=== PATIENT | female | born 1985 | race Caucasian/White ===

== ENCOUNTER 2017-08-13 15:16 | Inpatient (IN) | payer OTHER ==
[~2017-08-13] VITALS: Ht 165.1 cm; Wt 75.1 kg
[~2017-08-13 15:16] MED LIST: CLARITIN10 MG PO; ENDOCET 5-3251 EACH PO; FEOSOL325 MG PO; FLONASE16 G1 BOTH NARES; HYDROCODON-ACE1 EAC7 PO; MICRONOR0.35 MG PO; MOTRIN800 MG PO; OMEPRAZOLE40 M1 PO; PREFERA-OB P1 TABLET PO; PROAIR HFA8.5 GM IH; ZOFRAN4 MG PO; bcp
[2017-08-13 16:03] LABS: HEMATOCRIT 39.6 % (36.0-46.0); HEMOGLOBIN 13.4 G/DL (11.9-15.5); MCH 28.2 PG (29.0-34.0); MCHC 33.8 G/DL (30.0-36.0); MCV 83.4 FL (83-99); PLATELET COUNT 126 K/uL (156-360); RBC DIS.WIDTH-CV 12.3 % (11.8-14.6); RED BLOOD COUNT 4.75 M/uL (3.80-5.20); WHITE BLOOD COUNT 9.5 K/uL (4.1-10.2)
[2017-08-13 16:11] LABS: ALBUMIN 4.1 g/dL (3.2-4.8); CHLORIDE 105 mEq/L (99-109); SODIUM 138 mEq/L (136-147)
[2017-08-13 16:13] LABS: GLUCOSE 110 mg/dL (70-99)
[2017-08-13 16:14] LABS: TOTAL PROTEIN 6.8 g/dL (6.4-8.3)
[2017-08-13 16:15] LABS: TOTAL BILIRUBIN 0.6 mg/dL (0.0-1.0)
[2017-08-13 16:17] LABS: ALKALINE PHOSPHATASE 86 IU/L (3-129); CREATININE 0.7 mg/dL (0.6-1.3); GFR ESTIMATE (CALCULATED) > 59 mL/min/
[2017-08-13 16:18] LABS: UREA NITROGEN (BUN) 15 mg/dL (9-23)
[2017-08-13 16:19] LABS: AST (GOT) 66 IU/L (2-34)
[2017-08-13 16:20] LABS: ALT (GPT) 39 IU/L (3-49); LIPASE 209 U/L (1.0-51.0)
[2017-08-13 16:26] LABS: QUANTITATIVE HCG < 4.0 MIU/ML
[2017-08-13 16:27] LABS: APPEARANCE CLEAR ((CLEAR)); BILIRUBIN NEGATIVE; BLOOD NEGATIVE; COLOR YELLOW ((YELLOW)); GLUCOSE (STRIP) NEGATIVE; KETONES NEGATIVE; LEUKOCYTES NEGATIVE; NITRITE NEGATIVE; PROTEIN (STRIP) 30; SPECIFIC GRAVITY 1.027 (1.000-1.030); UCUL ADDED? NO
[2017-08-13] MEDS ORDERED: PROTONIX40 MG PO (19:09)
[2017-08-13] MEDS ORDERED: DAILY VALUE1 EACH PO (19:09)
[2017-08-13] MEDS ORDERED: VITAMIN B-12500 MC5 SL (19:11)
[2017-08-13] MEDS ORDERED: ORTHO TRI-CY1 TABLE1 PO (19:11)
[2017-08-13] MEDS ORDERED: FEOSOL325 MG PO (19:12)
[2017-08-13 21:21] VITALS: BP 110/74
[2017-08-13 23:32] VITALS: BP 115/70
[2017-08-14 03:29] VITALS: BP 114/60
[2017-08-14 06:25] LABS: BASOPHIL (%) 0.9 % (0-1); BASOPHIL COUNT 0.1 K/uL (0-0.1); EOSINOPHIL (%) 1.9 % (0-5); EOSINOPHIL COUNT 0.1 K/uL (0-0.3); HEMATOCRIT 38.9 % (36.0-46.0); HEMOGLOBIN 12.9 G/DL (11.9-15.5); IMMATURE GRANULOCYTE (%) 0.2 % (0.0-0.7); LYMPHOCYTE (%) 38.4 % (15-42); MCH 28.2 PG (29.0-34.0); MCHC 33.2 G/DL (30.0-36.0); MCV 84.9 FL (83-99); MONOCYTE (%) 9.4 % (3-12); MONOCYTE COUNT 0.5 K/uL (0-0.8); NEUTROPHIL (%) 49.2 % (45-76); NEUTROPHIL COUNT 2.6 K/uL (1.8-6.4); PLATELET COUNT 114 K/uL (156-360); RBC DIS.WIDTH-CV 12.5 % (11.8-14.6); RBC DIS.WIDTH-SD 38.2 % (39-53); RED BLOOD COUNT 4.58 M/uL (3.80-5.20); WHITE BLOOD COUNT 5.3 K/uL (4.1-10.2)
[2017-08-14 06:50] LABS: ALBUMIN 3.6 G/DL (3.2-4.8); ALKALINE PHOSPHATASE 79 IU/L (3-129); ALT (GPT) 83 IU/L (3-49); AMYLASE 33 IU/L (1-118); AST (GOT) 58 IU/L (2-34); CHLORIDE 109 MEQ/L (99-109); CREATININE 0.5 MG/DL (0.6-1.3); GFR ESTIMATE (CALCULATED) > 59 mL/min/; LIPASE 27 U/L (1.0-51.0); POTASSIUM 3.7 MEQ/L (3.7-5.4); SODIUM 141 MEQ/L (136-147); TOTAL BILIRUBIN 0.7 MG/DL (0.0-1.0); TOTAL PROTEIN 5.9 G/DL (6.4-8.3); TRIGLYCERIDES 148 MG/DL (Normal: <150); UREA NITROGEN (BUN) 11 mg/dL (9-23)
[2017-08-14 06:51] LABS: GLUCOSE 82 mg/dL (70-99)
[2017-08-14 07:05] LABS: C-REACTIVE PROTEIN 5.3 MG/L (0-10)
[2017-08-14 07:08] VITALS: BP 103/69
[2017-08-14 11:23] VITALS: BP 115/66
[2017-08-14 15:42] VITALS: BP 103/64
[2017-08-14 19:35] VITALS: BP 120/69
[2017-08-15 00:11] VITALS: BP 114/67
[2017-08-15 03:38] VITALS: BP 99/60
[2017-08-15 06:45] VITALS: BP 111/70
[2017-08-15 07:18] LABS: EOSINOPHIL COUNT 0.1 K/uL (0-0.3); HEMATOCRIT 35.6 % (36.0-46.0); IMMATURE GRANULOCYTE (%) 0.3 % (0.0-0.7); LYMPHOCYTE (%) 28.4 % (15-42); LYMPHOCYTE COUNT 1.1 K/uL (1.0-2.8); MCH 28.6 PG (29.0-34.0); MCHC 33.7 G/DL (30.0-36.0); MONOCYTE (%) 10.1 % (3-12); MONOCYTE COUNT 0.4 K/uL (0-0.8); NEUTROPHIL (%) 58.2 % (45-76); NEUTROPHIL COUNT 2.3 K/uL (1.8-6.4); PLATELET COUNT 93 K/uL (156-360); RBC DIS.WIDTH-CV 12.6 % (11.8-14.6); RBC DIS.WIDTH-SD 38.4 % (39-53); RED BLOOD COUNT 4.19 M/uL (3.80-5.20)
[2017-08-15 07:45] LABS: ALBUMIN 3.5 G/DL (3.2-4.8); ALKALINE PHOSPHATASE 100 IU/L (3-129); ALT (GPT) 87 IU/L (3-49); AST (GOT) 52 IU/L (2-34); CHLORIDE 108 MEQ/L (99-109); CREATININE 0.5 MG/DL (0.6-1.3); GFR ESTIMATE (CALCULATED) > 59 mL/min/; GLUCOSE 83 mg/dL (70-99); LIPASE 24 U/L (1.0-51.0); POTASSIUM 3.9 MEQ/L (3.7-5.4); SODIUM 141 MEQ/L (136-147); TOTAL PROTEIN 5.7 G/DL (6.4-8.3); UREA NITROGEN (BUN) 7 mg/dL (9-23)
[2017-08-15 14:47] LABS: PTT 31.2 SEC (25-37)
[2017-08-15 16:28] VITALS: BP 124/68
[2017-08-16 07:23] LABS: HEMATOCRIT 34.1 % (36.0-46.0); HEMOGLOBIN 11.7 G/DL (11.9-15.5); MCH 28.7 PG (29.0-34.0); MCHC 34.3 G/DL (30.0-36.0); MCV 83.6 FL (83-99); PLATELET COUNT 98 K/uL (156-360); RBC DIS.WIDTH-CV 12.5 % (11.8-14.6); RBC DIS.WIDTH-SD 37.8 % (39-53); RED BLOOD COUNT 4.08 M/uL (3.80-5.20); WHITE BLOOD COUNT 4.3 K/uL (4.1-10.2)
[2017-08-16 07:52] LABS: ALBUMIN 3.6 G/DL (3.2-4.8); ALKALINE PHOSPHATASE 141 IU/L (3-129); ALT (GPT) 105 IU/L (3-49); AST (GOT) 49 IU/L (2-34); DIRECT BILIRUBIN 1.5 mg/dL (0.0-0.3); TOTAL BILIRUBIN 2.6 MG/DL (0.0-1.0); TOTAL PROTEIN 5.7 G/DL (6.4-8.3)
[2017-08-16 07:53] VITALS: BP 109/69
[2017-08-16 12:18] VITALS: BP 120/66
[2017-08-16 15:15] VITALS: BP 127/73
[2017-08-16 19:17] VITALS: BP 117/68
[2017-08-16 23:20] VITALS: BP 114/66
[2017-08-17 03:47] VITALS: BP 116/69
[2017-08-17 07:03] LABS: BASOPHIL (%) 0.4 % (0-1); EOSINOPHIL (%) 0.9 % (0-5); EOSINOPHIL COUNT 0.1 K/uL (0-0.3); HEMATOCRIT 34.8 % (36.0-46.0); IMMATURE GRANULOCYTE (%) 0.4 % (0.0-0.7); LYMPHOCYTE (%) 27.6 % (15-42); LYMPHOCYTE COUNT 2.1 K/uL (1.0-2.8); MCH 28.8 PG (29.0-34.0); MCHC 34.5 G/DL (30.0-36.0); MCV 83.7 FL (83-99); MONOCYTE (%) 10.1 % (3-12); MONOCYTE COUNT 0.8 K/uL (0-0.8); NEUTROPHIL (%) 60.6 % (45-76); NEUTROPHIL COUNT 4.6 K/uL (1.8-6.4); NRBC (%) 0.3 /100 WBC (0-0); RBC DIS.WIDTH-CV 12.7 % (11.8-14.6); RBC DIS.WIDTH-SD 38.5 % (39-53); RED BLOOD COUNT 4.16 M/uL (3.80-5.20); WHITE BLOOD COUNT 7.7 K/uL (4.1-10.2)
[2017-08-17 07:06] LABS: PLATELET COUNT 129 K/uL (156-360)
[2017-08-17 07:30] VITALS: BP 126/79
[2017-08-17 07:43] LABS: ALBUMIN 3.7 G/DL (3.2-4.8); ALT (GPT) 178 IU/L (3-49); TOTAL BILIRUBIN 2.2 MG/DL (0.0-1.0); TOTAL PROTEIN 5.9 G/DL (6.4-8.3)
[2017-08-17 07:44] LABS: ALKALINE PHOSPHATASE 178 IU/L (3-129); AST (GOT) 109 IU/L (2-34); DIRECT BILIRUBIN 0.6 mg/dL (0.0-0.3)
[2017-08-17] MEDS ORDERED: HYDROCODON-ACE1 EAC7 PO (08:37)
== END 2017-08-17 13:20 | disposition home or self-care (01) | DRG 419 ==
LOC: EME 15:16 → EDOF 18:54 → ENRESERV 18:55 → CANRESERV 19:14 → EDOF 19:19 → 2EAST 19:19 → EDOF 19:19 → ENRESERV 19:26 → 2EAST 21:11
PROVIDERS: Internal Medicine; Internal Medicine Gastroenterology; Physician Assistant
DX: K80.10 Calculus of gallbladder with chronic cholecystitis without obstruction (principal); K31.4 Gastric diverticulum; K21.9 Gastro-esophageal reflux disease without esophagitis; D69.59 Other secondary thrombocytopenia; T47.1X5A Adverse effect of other antacids and anti-gastric-secretion drugs, initial encounter; K82.8 Other specified diseases of gallbladder; Z79.899 Other long term (current) drug therapy; Z83.3 Family history of diabetes mellitus; Z80.49 Family history of malignant neoplasm of other genital organs; Z98.84 Bariatric surgery status; Z82.49 Family history of ischemic heart disease and other diseases of the circulatory system; Z80.41 Family history of malignant neoplasm of ovary; Z82.3 Family history of stroke; Z80.1 Family history of malignant neoplasm of trachea, bronchus and lung
CPT/HCPCS: 74177; 74181; 74300; 80053; 80076; 81003; 82150; 82330; 83690; 84478; 84702; 85025; 85027; 85610; 85730; 86140; 88304; 93005; 99281; 99285; C9113; J1100; J1170; J1650; J1885; J2250; J2270; J2405; J2550; J2710; J3010; J7030; S0028

== ENCOUNTER 2017-08-19 08:08 | Emergency (ER) | payer OTHER ==
[~2017-08-19] VITALS: Ht 165.1 cm; Wt 72.1 kg
[~2017-08-19 08:08] MED LIST changes: -RANITIDINE HCL300 MG PO
[2017-08-19] MEDS ORDERED: RANITIDINE HCL300 MG PO (08:33)
[2017-08-19 08:50] LABS: BASOPHIL (%) 0.5 % (0-1); EOSINOPHIL (%) 1.7 % (0-5); EOSINOPHIL COUNT 0.1 K/uL (0-0.3); HEMATOCRIT 41.9 % (36.0-46.0); IMMATURE GRANULOCYTE (%) 0.5 % (0.0-0.7); LYMPHOCYTE (%) 20.1 % (15-42); LYMPHOCYTE COUNT 1.6 K/uL (1.0-2.8); MCHC 33.4 G/DL (30.0-36.0); MCV 83.8 FL (83-99); MONOCYTE (%) 7.1 % (3-12); MONOCYTE COUNT 0.6 K/uL (0-0.8); NEUTROPHIL (%) 70.1 % (45-76); NEUTROPHIL COUNT 5.6 K/uL (1.8-6.4); RBC DIS.WIDTH-CV 13.2 % (11.8-14.6); RBC DIS.WIDTH-SD 39.8 % (39-53)
[2017-08-19 08:53] LABS: PLATELET COUNT 184 K/uL (156-360)
[2017-08-19 08:59] LABS: ALBUMIN 3.9 g/dL (3.2-4.8); CHLORIDE 105 mEq/L (99-109); POTASSIUM 3.5 mEq/L (3.7-5.4); SODIUM 140 mEq/L (136-147)
[2017-08-19 09:00] LABS: MAGNESIUM 1.9 mg/dL (1.3-2.7)
[2017-08-19 09:02] LABS: GLUCOSE 99 mg/dL (70-99); TOTAL PROTEIN 7.1 g/dL (6.4-8.3)
[2017-08-19 09:04] LABS: TOTAL BILIRUBIN 3.5 mg/dL (0.0-1.0)
[2017-08-19 09:06] LABS: ALKALINE PHOSPHATASE 298 IU/L (3-129); CREATININE 0.7 mg/dL (0.6-1.3); GFR ESTIMATE (CALCULATED) > 59 mL/min/
[2017-08-19 09:07] LABS: AST (GOT) 47 IU/L (2-34); UREA NITROGEN (BUN) 8 mg/dL (9-23)
[2017-08-19 09:09] LABS: LIPASE 36 U/L (1.0-51.0)
[2017-08-19 09:10] LABS: ALT (GPT) 193 IU/L (3-49)
[2017-08-19 09:19] LABS: QUANTITATIVE HCG < 4.0 MIU/ML
[2017-08-19 09:44] LABS: APPEARANCE CLOUDY ((CLEAR)); BILIRUBIN SMALL; BLOOD MODERATE; COLOR AMBER ((YELLOW)); GLUCOSE (STRIP) NEGATIVE; KETONES 20; LEUKOCYTES SMALL; NITRITE NEGATIVE; PROTEIN (STRIP) 30; SPECIFIC GRAVITY 1.025 (1.000-1.030)
[2017-08-19 10:01] LABS: BACTERIA RARE /HPF; CALCIUM OXALATE CRYSTALS 3+ /HPF; EPITHELIAL CELLS 3+ /HPF; HYALINE CASTS 0-5 /LPF; MUCUS 3+ /LPF; RED BLOOD CELLS 0-5 /HPF (0-5); UCUL ADDED? YES; WHITE BLOOD CELLS 20-30 /HPF (0-5)
[2017-08-19 10:35] VITALS: BP 131/92
== END 2017-08-19 10:36 | disposition home or self-care (01) ==
LOC: EME 08:08
PROVIDERS: Emergency Medicine
DX: K80.50 Calculus of bile duct without cholangitis or cholecystitis without obstruction (principal); Z98.890 Other specified postprocedural states; Z90.49 Acquired absence of other specified parts of digestive tract; Z98.84 Bariatric surgery status; Z87.891 Personal history of nicotine dependence
CPT/HCPCS: 80053; 81003; 83690; 83735; 84702; 85025; 87086; 99281; 99284; J2270; J2405; J7030

== ENCOUNTER → 2017-08-19 | Outpatient (CLI) | payer OTHER ==
[~2017-08-19] MED LIST changes: +DAILY VALUE1 EACH PO; +ORTHO TRI-CY1 TABLE1 PO; +PROTONIX40 MG PO; +RANITIDINE HCL300 MG PO; +VITAMIN B-12500 MC5 SL
== END | disposition home or self-care (01) ==
LOC: AMB 10:43
DX: K80.50 Calculus of bile duct without cholangitis or cholecystitis without obstruction (principal); K21.9 Gastro-esophageal reflux disease without esophagitis; I10 Essential (primary) hypertension; Z87.891 Personal history of nicotine dependence
CPT/HCPCS: 74330; 87081; 94640; C1757; C1769; J1100; J1885; J2405; J2550; J2710; J3010

== ENCOUNTER → 2017-08-26 | Outpatient (CLI) | payer OTHER ==
[~2017-08-26] MED LIST changes: +RANITIDINE HCL300 MG PO
== END | disposition home or self-care (01) ==
LOC: CT 14:44
DX: D71 Functional disorders of polymorphonuclear neutrophils (principal); Z98.890 Other specified postprocedural states; Z90.49 Acquired absence of other specified parts of digestive tract
CPT/HCPCS: 71275

== ENCOUNTER 2017-12-23 19:40 | Inpatient (IN) | payer OTHER ==
[~2017-12-23] VITALS: Ht 165.1 cm; Wt 77.6 kg
[2017-12-23 20:10] LABS: BASOPHIL (%) 0.2 % (0-1); EOSINOPHIL (%) 0.6 % (0-5); EOSINOPHIL COUNT 0.1 K/uL (0-0.3); HEMATOCRIT 41.2 % (36.0-46.0); HEMOGLOBIN 14.1 G/DL (11.9-15.5); IMMATURE GRANULOCYTE (%) 0.3 % (0.0-0.7); LYMPHOCYTE (%) 6.6 % (15-42); LYMPHOCYTE COUNT 0.8 K/uL (1.0-2.8); MCH 28.3 PG (29.0-34.0); MCHC 34.2 G/DL (30.0-36.0); MCV 82.6 FL (83-99); MONOCYTE (%) 4.5 % (3-12); MONOCYTE COUNT 0.5 K/uL (0-0.8); NEUTROPHIL (%) 87.8 % (45-76); NEUTROPHIL COUNT 10.2 K/uL (1.8-6.4); PLATELET COUNT 141 K/uL (156-360); RBC DIS.WIDTH-CV 12.6 % (11.8-14.6); RED BLOOD COUNT 4.99 M/uL (3.80-5.20); WHITE BLOOD COUNT 11.6 K/uL (4.1-10.2)
[2017-12-23 20:19] LABS: ALBUMIN 4.3 g/dL (3.2-4.8); CHLORIDE 104 mEq/L (99-109); SODIUM 138 mEq/L (136-147)
[2017-12-23 20:22] LABS: GLUCOSE 140 mg/dL (70-99); TOTAL PROTEIN 7.1 g/dL (6.4-8.3)
[2017-12-23 20:23] LABS: APPEARANCE SL.HAZY ((CLEAR)); BILIRUBIN NEGATIVE; BLOOD NEGATIVE; COLOR YELLOW ((YELLOW)); GLUCOSE (STRIP) NEGATIVE; KETONES 5; LEUKOCYTES TRACE; NITRITE NEGATIVE; PROTEIN (STRIP) 30
[2017-12-23 20:25] LABS: ALKALINE PHOSPHATASE 75 IU/L (3-129)
[2017-12-23 20:26] LABS: CREATININE 0.7 mg/dL (0.6-1.3); GFR ESTIMATE (CALCULATED) > 59 mL/min/
[2017-12-23 20:27] LABS: AST (GOT) 21 IU/L (2-34); DIRECT BILIRUBIN 0.4 mg/dL (0.0-0.3); UREA NITROGEN (BUN) 15 mg/dL (9-23)
[2017-12-23 20:28] LABS: ALT (GPT) 24 IU/L (3-49)
[2017-12-23 20:29] LABS: LIPASE 961 U/L (1.0-51.0)
[2017-12-23 20:34] LABS: QUANTITATIVE HCG < 4.0 MIU/ML
[2017-12-23 20:39] LABS: BACTERIA 1+ /HPF; EPITHELIAL CELLS RARE /HPF; MUCUS TRACE /LPF; RED BLOOD CELLS 0-5 /HPF (0-5); WHITE BLOOD CELLS 0-5 /HPF (0-5)
[2017-12-23] MEDS ORDERED: PAXIL10 MG PO (22:04)
[2017-12-23] MEDS ORDERED: CALCIUM500 M4 PO (22:04)
[2017-12-24] VITALS (7 sets, daily range): BP systolic 101–119; BP diastolic 55–68
[2017-12-24 00:32] LABS: HEMATOCRIT 35.4 % (36.0-46.0); HEMOGLOBIN 12.2 G/DL (11.9-15.5); MCH 28.6 PG (29.0-34.0); MCHC 34.5 G/DL (30.0-36.0); MCV 82.9 FL (83-99); PLATELET COUNT 123 K/uL (156-360); RBC DIS.WIDTH-CV 12.6 % (11.8-14.6); RBC DIS.WIDTH-SD 38.3 % (39-53); RED BLOOD COUNT 4.27 M/uL (3.80-5.20)
[2017-12-24 06:07] LABS: ALBUMIN 3.8 G/DL (3.2-4.8); ALKALINE PHOSPHATASE 62 IU/L (3-129); ALT (GPT) 18 IU/L (3-49); AST (GOT) 16 IU/L (2-34); DIRECT BILIRUBIN 0.2 mg/dL (0.0-0.3); TOTAL PROTEIN 5.8 G/DL (6.4-8.3)
[2017-12-24 10:47] LABS: LIPASE 20 U/L (1.0-51.0)
[2017-12-24 20:10] LABS: C DIFF TOXIN NEGATIVE (NEGATIVE)
[2017-12-25 00:24] VITALS: BP 110/70
[2017-12-25 04:36] VITALS: BP 109/68
[2017-12-25 05:53] LABS: HEMATOCRIT 32.4 % (36.0-46.0); HEMOGLOBIN 10.9 G/DL (11.9-15.5); MCH 28.5 PG (29.0-34.0); MCHC 33.6 G/DL (30.0-36.0); MCV 84.6 FL (83-99); PLATELET COUNT 90 K/uL (156-360); RBC DIS.WIDTH-CV 12.7 % (11.8-14.6); RBC DIS.WIDTH-SD 38.8 % (39-53); RED BLOOD COUNT 3.83 M/uL (3.80-5.20); WHITE BLOOD COUNT 3.4 K/uL (4.1-10.2)
[2017-12-25 08:02] VITALS: BP 106/69
[2017-12-25 11:49] VITALS: BP 123/82
== END 2017-12-25 14:40 | disposition home or self-care (01) | DRG 440 ==
LOC: EME 19:40 → EDOF 22:32 → 3EAST 22:32 → ENRESERV 22:40 → 3EAST 12-24 00:32
PROVIDERS: Hospitalist; Internal Medicine Gastroenterology; Physician Assistant
DX: K85.10 Biliary acute pancreatitis without necrosis or infection (principal); D69.6 Thrombocytopenia, unspecified; K21.9 Gastro-esophageal reflux disease without esophagitis; R19.7 Diarrhea, unspecified; F32.9 Major depressive disorder, single episode, unspecified; Z98.84 Bariatric surgery status; Z90.49 Acquired absence of other specified parts of digestive tract; Z87.891 Personal history of nicotine dependence; Z80.1 Family history of malignant neoplasm of trachea, bronchus and lung; Z80.41 Family history of malignant neoplasm of ovary; Z82.49 Family history of ischemic heart disease and other diseases of the circulatory system; Z83.3 Family history of diabetes mellitus
CPT/HCPCS: 74177; 74181; 76705; 80048; 80076; 81003; 83690; 84702; 85025; 85027; 87086; 87493; 93005; 99281; 99284; J0744; J1170; J1650; J1885; J2405; J2765; J3010; J7030; J7040; S0028